=== PATIENT | female | born 1960 | race Caucasian/White ===

== ENCOUNTER → 2021-07-06 | Outpatient (CLI) | payer OTHER ==
--- NOTE | 2021-07-06 10:15 | KCIC ---
Bilateral digital screening mammograms: Reason for examination: Routine baseline screening. Interpretation was made with the benefit of CAD. The skin and nipples show no abnormalities. No abnormal axillary lymph nodes are seen. The breast par enchyma shows scattered fibroglandular density. (Breast density: Category B.) There appear to be smal l nodular parenchymal densities bilaterally in the central retroareolar position of the right breast and in the retroareolar position centrally in the left breast and 12:00 C position of the left breast . Recommend further evaluation with ultrasound. There appears to be a small intramammary lymph node a t the 10:00 C position of the right breast. No suspicious calcifications are seen.. Impression: Small nodular densities bilaterally. Recommend further evaluation with ultrasound. BI-RADS Category 0: Incomplete. Needs additional imaging evaluation. "Our facility is accredited by the [employer]amm[employer]." This patient's information has been entered into a reminder system for the patient to be notified wit h the results of her examination and a target date for the next mammogram. Electronically signed by: Mary Alice Snider MD (07/06/2021 10:12 AM) [id number]
--- NOTE | 2021-07-06 10:52 | KCIC ---
EXAMINATION: DXA BONE DENSITY AXIAL INDICATION:61 years, Female, bone density. COMPARISON: None. TECHNIQUE: Dual energy x-ray absorptiometry of the lumbar spine and left hip was performed. T-score o f average bone mineral density based was calculated based on standard deviations above or below the e xpected young adult normal value. FINDINGS: * The average bone mineral density associated with L1-L4 is 0.716 g/cm^2, corresponding with a T-sco re of -3.0. * Left femoral neck bone mineral density is 0.598 g/cm^2, corresponding with a T-score of -2.8. Refer to the worksheets for full detail. IMPRESSION: 1. Lumbar spine demonstrates Osteoporosis. Average bone mineral density yields a T-score of -2.5 or l ess. Fracture risk is high. 2. Left femoral neck demonstrates Osteoporosis. Average bone mineral density yields a T-score of -2.5 or less. Fracture risk is high. Notice: BMD in post menopausal women is classified as normal (T score = -1 or higher), osteopenia (T score = -1.1 to -2.4), or osteoporosis (T score = -2.5 for less), according to criteria established b y the WHO. Electronically signed by: Gil Moreau DO (07/06/2021 10:50 AM) [id number]
== END ==
LOC: KCIC MAMMO 08:49
PROVIDERS: ATTEND Family Medicine
DX: Z12.31 Encounter for screening mammogram for malignant neoplasm of breast (principal); Z13.820 Encounter for screening for osteoporosis; M81.0 Age-related osteoporosis without current pathological fracture; Z78.0 Asymptomatic menopausal state; Z82.62 Family history of osteoporosis
CPT/HCPCS: 77067; 77080